=== PATIENT | female | born 1950 | race Caucasian/White ===

== ENCOUNTER 2018-02-14 13:45 | Observation (INO) | payer MEDICARE ==
[2018-02-14] MEDS ORDERED: NS 0.9% 1000 ML* 1,000 ML IV ONE (14:02)
--- NOTE | 2018-02-14 14:04 | ED ---
Altered Mental Status - HPI Summary HPI Summary: This patient is a 67 year old F BIBA to [facility] with a chief complaint of slurred speech since yesterday morning, worsening today. Patient reports nerve pain, dizziness, left hip pain, left hip weakness (it feels like I have no leg when I try to stand on it), and lump on right side of neck. Patient denies CP, SOB, TEJEDA, and blurry vision. Patient reports a stroke 1 year ago that went untreated. No PMHx of NE. She has not taken her BP medications recently. - History Of Current Complaint Stated Complaint: POSS STROKE Time Seen by Provider: 02/14/18 13:46 Hx Obtained From: Patient Onset/Duration: Still Present Timing: Constant, Lasting Days - Since yesterday morning Severity Currently: Mild Associated Signs And Symptoms: Positive: Dizziness, Weakness - Allergies/Home Medications Allergies/Adverse Reactions: Allergies Allergy/AdvReac Type Severity Reaction Status Date / Time No Known Allergies Allergy Verified 02/14/18 14:09 PMH/Surg Hx/FS Hx/Imm Hx Endocrine/Hematology History: Denies: Hx Diabetes EENT History: Denies: Hx Deafness - Family History Known Family History: Positive: Diabetes - Social History Alcohol Use: None Substance Use Type: Reports: None Smoking Status (MU): Heavy Every Day Tobacco Smoker Review of Systems Negative: Blurred Vision Positive: Other - Lump on right side of neck Negative: Chest Pain Negative: Shortness Of Breath Positive: Other - Left hip pain, left hip weaknessweakness (it feels like I have no leg when I try to stand on it) Neurological: Other - Dizziness Positive: Slurred Speech. Negative: Headache All Other Systems Reviewed And Are Negative: Yes Physical Exam - Summary Physical Exam Summary: GENERAL: Patient is a well-developed and nourished F who is lying comfortable in the stretcher. Patient is not in any acute respiratory distress. HEAD AND FACE: Normocephalic EYES: PERRLA, EOMI x 2. EARS: Hearing grossly intact. MOUTH: Oropharynx within normal limits. NECK: Supple, trachea is midline, no adenopathy, no JVD, no carotid bruit. CHEST: Symmetric, no tenderness at palpation LUNGS: Clear to auscultation bilaterally. No wheezing or crackles. CVS: Regular rate and rhythm, S1 and S2 present, no murmurs or gallops appreciated. ABDOMEN: Soft, non-tender. Bowel sounds are normal. No abdominal abnormal pulsations. EXTREMITIES: Full ROM in all major joints, no edema, no cyanosis or clubbing. NEURO: Alert and oriented x 3. No acute neurological deficits. Speech is normal and follows commands. NIH Stroke Scale = 1. SKIN: Dry and warm Triage Information Reviewed: Yes Vital Signs Reviewed: Yes Diagnostics - Laboratory Result Diagrams: 02/15/18 06:23 02/15/18 06:23 Lab Statement: Any lab studies that have been ordered have been reviewed, and results considered in the medical decision making process. - Radiology Chest X-Ray Radiology Interpretation Completed By: Radiologist - 14:57. NO ACTIVE CARDIOPULMONARY DISEASE IS NOTED. ED Physician has reviewed this imaging report. Brain MRI Radiology Interpretation Completed By: Radiologist - 17:01. Small area of restriction of diffusion involving the left brock at the level of the left cerebellar peduncle consistent with a small acute infarct in the brainstem. ED Physician has reviewed this imaging report. - CT Brain CT CT Interpretation Completed By: Radiologist - 14:51. 1. CHRONIC SMALL VESSEL ISCHEMIC CHANGES WITH AGE-INDETERMINATE LACUNAR INFARCT OF THE RIGHT BASAL GANGLIA. OTHERWISE, NO ACUTE INTRACRANIAL PATHOLOGY. 2. PRELIMINARY FINDINGS WERE DISCUSSED WITH DR. LEON IN THE EMERGENCY DEPARTMENT AT APPROXIMATELY 2:37 PM ON 2017 . ED Physician has reviewed this imaging report. - EKG 14:50 Cardiac Rate: Tachycardia - 109 BPM EKG Interpretation: left atrial enlargement, q waves seen in inferior and anterior septal leads National Institutes Of Health - NIH Scale Level of Consciousness: Alert/Keenly Responsive Ask Patient the Month and His/Her Age: Both Correct Ask Pt to Open/Close Eyes and Customer Support Associate/Release Non-Paretic Hand: Both Correctly Best Gaze (Only Horizontal Eye Movement): Normal Visual Field Testing: No Visual Loss Facial Paresis-Pt to Smile & Close Eyes or Grimace Symmetry: Normal/Symmetrical Motor Function - Right Arm: No Drift-Holds 10 Seconds Motor Function - Left Arm: No Drift-Holds 10 Seconds Motor Function - Right Leg: No Drift-Holds 10 Seconds Motor Function - Left Leg: No Drift-Holds 10 Seconds Limb Ataxia-Must be out of Proportion to Weakness Present: Absent Sensory (Use Pinprick to Test Arms/Legs/Trunk/Face): Normal Best Language (Describe Picture, Name Items): No Aphasia Dysarthria (Read Several Words): Slurs Some Words Extinction and Inattention: No Abnormality Total Score: 1 Altered Mental Statu Course/Dx - Course Assessment/Plan: This patient is a 67 year old F BIBA to [facility] with a chief complaint of slurred speech since yesterday morning, worsening today. Workup is remarkable for a white count of 14. She has a glucose at 280. CT scan of her head shows an age indeterminant right sided basal ganglia infarction. I discussed results with patient. The patient did not present within the window which is why I did not call a code arias. Case discussed with hospitalist, who will admit her with a full stroke workup. Patient agrees with this plan. - Diagnoses Provider Diagnoses: Stroke - Provider Notifications Discussed Care Of Patient With: Vishnu Long - Radiology Time Discussed With Above Provider: 14:37 Instructed by Provider To: Other - Discussed the results of the Brain CT Discharge - Sign-Out/Discharge Documenting (check all that apply): Patient Departure - Admit - Discharge Plan Condition: Stable Disposition: ADMITTED TO [facility] - Billing Disposition and Condition Condition: STABLE Disposition: Admitted to [facility] - Attestation Statements Document Initiated by Scribe: Yes Documenting Scribe: Antwon Bernardo Provider For Whom Scribe is Documenting (Include Credential): Damian Leon MD Scribe Attestation: Antwon Saldana, scribed for Damian Leon MD on 02/22/18 at 1441. Scribe Documentation Reviewed: Yes Provider Attestation: The documentation as recorded by the Antwon cheney accurately reflects the service I personally performed and the decisions made by me, Damian Leon MD
[2018-02-14] MEDS ORDERED: Labetalol IV* 5 MG/ML 20 ML VIAL IV PUSH ONE ×2 (14:11→18:29)
--- NOTE | 2018-02-14 14:54 | RAD ---
HISTORY: Neurological changes/code ralph COMPARISONS: None TECHNIQUE: Multiple contiguous axial CT scans were obtained of the head without intravenous contrast. FINDINGS: HEMORRHAGE/INFARCT: There is no hemorrhage or acute infarct. MASSES/SHIFT: There is no mass or shift. EXTRA-AXIAL SPACES: There are no extra-axial fluid collections. SULCI AND VENTRICLES: The sulci and ventricles are normal in size and position for the patient's stated age. CEREBRUM: There is hypoattenuation of the periventricular and subcortical white matter. There is an subacute to chronic age-indeterminate lacunar infarct of the right basal ganglia on axial image 11 measuring 0.4 cm in size. BRAINSTEM: There are no focal parenchymal abnormalities. CEREBELLUM: There are no focal parenchymal abnormalities. VESSELS: The vessels are grossly normal. PARANASAL SINUSES: The paranasal sinuses are clear. ORBITS: The orbits are unremarkable. BONES AND SOFT TISSUE: No bone or soft tissue abnormalities are noted. OTHER: None IMPRESSION: 1. CHRONIC SMALL VESSEL ISCHEMIC CHANGES WITH AGE-INDETERMINATE LACUNAR INFARCT OF THE RIGHT BASAL GANGLIA. OTHERWISE, NO ACUTE INTRACRANIAL PATHOLOGY. 2. PRELIMINARY FINDINGS WERE DISCUSSED WITH DR. ELY IN THE EMERGENCY DEPARTMENT AT APPROXIMATELY 2:37 PM ON 2017 .
--- NOTE | 2018-02-14 15:00 | RAD ---
Indication: Neurologic changes, coronal ralph. Single frontal view of the chest performed at 1440 hours was reviewed. No prior study is available. No mediastinal shift is noted. Heart is of normal size and configuration. Lung pickard appear clear. IMPRESSION: NO ACTIVE CARDIOPULMONARY DISEASE IS NOTED.
[2018-02-14 15:18] LABS: Hematocrit 43 % (35-47); Mean Corpuscular HGB Conc 35 g/dl (31-36); Mean Corpuscular Hemoglobin 31 pg (27-31); Mean Corpuscular Volume 90 fL (80-97); Mean Platelet Volume 9.9 um3 (7.4-10.4); Platelet Count 340 10^3/ul (150-450); Red Blood Count 4.78 10^6/ul (4.00-5.40); Red Cell Distribution Width 13 % (10.5-15)
[2018-02-14 15:19] LABS: Urine Appearance Clear; Urine Blood Negative (Negative); Urine Color Yellow; Urine Ketones Negative (Negative); Urine Protein Negative (Negative); Urine Specific Gravity 1.009 (1.010-1.030); Urine Urobilinogen Negative (Negative)
[2018-02-14 15:43] LABS: INR 0.97 (0.77-1.02)
[2018-02-14 15:44] LABS: EGFR Non-African American 125.6 (>60)
[2018-02-14 16:46] LABS: ABS Basophils 0.1 10^3/ul (0-0.2); ABS Eosinophils 0.1 10^3/ul (0-0.6); ABS Lymphocytes 5.1 10^3/ul (1.0-4.8); ABS Monocytes 1.2 10^3/ul (0-0.8); ABS Neutrophils 7.4 10^3/ul (1.5-7.7); ABS Nucleated RBC 0 10^3/ul; Lymphocyte % 36.7 % (25-47); Nucleated Red Blood Cells % 0.2
[2018-02-14] MEDS ORDERED: amLODIPine TAB* 5 MG PO ONE ×2 (16:52→21:00)
[2018-02-14] MEDS ORDERED: Clopidogrel TAB* 75 MG PO ONE (16:54)
[2018-02-14] MEDS ORDERED: Iohexol 350* (CONTRAST) 500 ML MDV IV ONE (16:57)
--- NOTE | 2018-02-14 17:04 | RAD ---
Indication: Transient ischemic attack, stroke. Sagittal and axial T1, axial T2, FLAIR, diffusion and susceptibility weighted images of the brain were obtained. Ventricular structures are midline. No midline shift is noted. The extra-axial spaces are unremarkable. The FLAIR images demonstrates multiple areas of signal abnormality in the FLAIR images in the subcortical white matter in the frontal lobes, periventricular white matter, right. Basal ganglia. These likely represents chronic ischemic White matter change. Additionally there is a small focus of restriction of diffusion involving the left brainstem at the level of the cervical peduncle consistent with a small brainstem infarct. No other areas of restriction of diffusion is noted. Susceptibility weighted images demonstrate no evidence of susceptibility artifact. Mild mucosal thickening of the right maxillary sinus is noted. IMPRESSION: Small area of restriction of diffusion involving the left brock at the level of the left cerebellar peduncle consistent with a small acute infarct in the brainstem.
[2018-02-14] MEDS ORDERED: Potassium Chlor TAB* 20 MEQ TAB.ER PO ONE (17:14)
[2018-02-14] MEDS ORDERED: Acetaminophen TAB* 325 MG PO PRN (17:26)
[2018-02-14] MEDS ORDERED: Dextrose 50% Syringe 50 ML* 25 GM/50 ML SYRINGE IV PUSH PRN (17:27)
--- NOTE | 2018-02-14 18:40 | RAD ---
EXAM: US Duplex Bilateral Extracranial Arteries CLINICAL HISTORY: 67 years old, female; Signs and symptoms; Speech disturbance; Slurred speech; Additional info: CVA TECHNIQUE: Real-time duplex ultrasound scan of the extracranial arteries integrating B-mode two-dimensional vascular structure, Doppler spectral analysis and color flow Doppler imaging. COMPARISON: No relevant prior studies available. FINDINGS: Right common carotid artery: Uncalcified plaque. No occlusion or significant stenosis on color flow and spectral Doppler imaging. Right internal carotid artery: No occlusion or significant stenosis on color flow and spectral Doppler imaging. Right external carotid artery: Unremarkable. No occlusion or significant stenosis on color flow and spectral Doppler imaging. Right vertebral artery: Unremarkable. Antegrade flow. Right ICA/CCA ratio: 0.86. Within normal limits. Left common carotid artery: Uncalcified plaque. No occlusion or significant stenosis on color flow and spectral Doppler imaging. Left internal carotid artery: No occlusion or significant stenosis on color flow and spectral Doppler imaging. Left external carotid artery: Unremarkable. No occlusion or significant stenosis on color flow and spectral Doppler imaging. Left vertebral artery: Unremarkable. Antegrade flow. Left ICA/CCA ratio: 0.70. Within normal limits. Lymph nodes: Unremarkable. No lymphadenopathy. CAROTID STENOSIS REFERENCE USING SRU CRITERIA: Mild - <50% stenosis. ICA PSV is less than 125 cm/second and plaque or intimal thickening is visible. Moderate - 50-69% stenosis. ICA PSV is 125 to 230 cm/second and plaque is visible. Severe - 70-94% stenosis. ICA PSV is more than 230 cm/second and visible plaque with lumen narrowing is seen. Near occlusion - 95-99% stenosis. ICA PSV is variable and significant plaque with luminal narrowing is seen. Occluded - 100% stenosis. No flow identified. IMPRESSION: Mild less than 50% stenosis of bilateral internal carotid arteries.
--- NOTE | 2018-02-14 20:54 | HP ---
HISTORY AND PHYSICAL: DATE OF ADMISSION: 02/14/18 ATTENDING PHYSICIAN: Dr. Sloan * (report dictated by Lindsey Pantoja, VALENTIN). PRIMARY CARE PROVIDER: No PCP. CHIEF COMPLAINT: Slurred speech and left-sided weakness. HISTORY OF PRESENT ILLNESS: Ms. Springer is a 67-year-old female with a past medical history of long-term tobacco abuse and hypertension, who presents to the emergency department today with her for report of slurred speech and left- sided weakness starting 2 to 3 days ago. Per the , he had to convince his to come in as she did not want to come in for evaluation. She reports she stopped taking her lisinopril over a year ago due to it causing a cough and did not follow up with any healthcare provider since and currently reports she has no primary care doctor. She reports that approximately a year ago, she had similar symptoms where she had acute onset of slurred speech, left facial droop and left-sided weakness and chose to not have any medical evaluation. Today, her convinced her to come in for further evaluation. She reports 2 to 3 days ago, she felt that her gait was off and she was leaning forward with weakness more on the left upper and lower extremities as well as she had garbled and slurred speech with left-sided facial droop. She reports today she is better than yesterday with improved gait and feels that her left-sided weakness is mostly resolved; however, she continues to have slurred and garbled speech. She denies any difficulty drinking or eating. She denies headache, vision changes, any numbness or tingling. Otherwise, she denies any recent illnesses and reports she normally feels well at her baseline. PAST MEDICAL HISTORY: 1. Hypertension. 2. Tobacco abuse. CURRENT MEDICATIONS: None. ALLERGIES: No known allergies. FAMILY HISTORY: Unknown. SOCIAL HISTORY: The patient reports a 50-year smoking history, smoking half a pack to a pack a day. Denies alcohol use. Denies recreational drug use. The patient currently lives at home with her who is her healthcare proxy, David Springer, . REVIEW OF SYSTEMS: A 14-point review of systems was performed. All the pertinent positives and negatives are mentioned in the history of present illness. Otherwise, negative. PHYSICAL EXAMINATION GENERAL APPEARANCE: A 67-year-old obese female lying on the emergency department stretcher, alert and oriented x3, in no acute distress. Notable slurred speech. VITAL SIGNS: Temperature 99.3, heart rate 92, respirations 19, O2 sat 94% on room air, and blood pressure 180/92. HEENT: Head is normocephalic, atraumatic. Pupils are equal and reactive to light. Oropharynx is clear. Moist mucous membranes. NECK: Supple. LUNGS: Clear to auscultation bilaterally. Good aeration throughout. No accessory muscle use. CARDIAC: S1, S2. Regular rate and rhythm. No murmur, rub, or gallop appreciated. No lower extremity edema noted. ABDOMEN: Obese, soft, nontender. Normal bowel sounds throughout. EXTREMITIES: No clubbing, cyanosis, or edema. NEUROLOGICAL: Alert and oriented x3, notable slurred speech, mild left facial droop noted. No pronator drift noted. Sensation to lower extremities intact to light touch. [id number] test is intact bilaterally. She appears to be slightly slower on the left than the right. Extraocular movements intact. Nystagmus noted with right gaze. Tongue is midline. Strength is 5/5 throughout. LABORATORY DATA AND DIAGNOSTIC STUDIES: Sodium 138, potassium 3.3, chloride 109, carbon dioxide 23, anion gap 16, BUN 14, creatinine 0.40, glucose 280, hemoglobin A1c 11.7, lactic acid 1.4, calcium 8.3. Total bilirubin 0.30, AST 12 , ALT 10, alkaline phosphatase 121. Troponin 0.01. Total protein 5.8, albumin 3.4. Triglycerides 185, cholesterol 206, LDL 132, HDL 37. INR is 0.97. WBC is 14.0, RBC 4.78, Hgb 15.0, Hct 43, MCV 90, MCH 31, MCHC 35, RDW 13, platelet count 340,000. Urinalysis: 2+ glucose, urine specific gravity 1.009, otherwise unremarkable. Brain CT, impression: "Chronic small vessel ischemic changes with age indeterminate lacunar infarct of the right basal ganglia. Otherwise, no acute intracranial pathology." Chest x-ray, impression: "No acute cardiopulmonary disease is noted." ASSESSMENT AND PLAN: Ms. Springer is a 67-year-old female with a past medical history of long-term tobacco abuse, uncontrolled hypertension who presents to the emergency department today with report of 2 to 3 days of slurred speech, unsteady gait and left-sided weakness, found to have an age indeterminate stroke on CT scan. As well, it appears per the patient's story that she had a stroke last year with similar symptoms in which she was never evaluated for. 1. Cerebrovascular accident. The patient will be admitted to the hospitalist service to telemetry. She will undergo an MRI of the brain as well as a CTA of the head and neck. She did take high-dose aspirin today due to her left-sided sciatica pain. I spoke with Dr. Cooper, who recommended starting the patient on Plavix and baby aspirin. We will give the patient the first dose of Plavix this evening. Obtain a transthoracic echocardiogram with bubble study, monitor on telemetry. PT/OT. Swallow eval. Fasting lipid profile in the morning. Neuro checks. Neurology to see tomorrow. 2. Uncontrolled hypertension. The patient presents with a blood pressure of over 200 in the emergency department. She was given labetalol, which has brought her pressure down to systolically 170s to 180s. We will give the patient 1 dose of Norvasc 5 mg x1 now and start her on Norvasc 5 mg p.o. daily. We will slowly want to bring her blood pressure down. 3. Type 2 diabetes. New diagnosis. We will start the patient on fingerstick blood glucose monitoring a.c. and h.s. with a lispro sliding scale. As well, we will refer to oil gas and pipe tester, Dr. Harvinder Gallegos. 4. Tobacco abuse. Smoking cessation. Nicotine replacement p.r.n. 5. DVT prophylaxis. Heparin subcu. 6. Code status. Full code. TIME SPENT: Approximately 60 minutes were spent on this admission. LINDSEY PANTOJA, VALENTIN [id number]/[facility] #: [id number] DOMENIC
[2018-02-14] MEDS: Heparin VIAL(*) 5000 UNITS/ML VIAL (FIVE THOUSAND) SUBCUT SCH (21:33)
[2018-02-14] MEDS: Insulin LISPRO* 1 UNITS UNIT SUBCUT SCH (21:34)
[2018-02-15] MEDS ORDERED: traMADol TAB* 50 MG PO PRN (01:16)
[2018-02-15] MEDS: Heparin VIAL(*) 5000 UNITS/ML VIAL (FIVE THOUSAND) SUBCUT SCH ×2 (05:27→14:52)
[2018-02-15 06:52] LABS: Hematocrit 45 % (35-47); Hemoglobin 15.3 g/dl (12.0-16.0); Mean Corpuscular HGB Conc 34 g/dl (31-36); Mean Corpuscular Hemoglobin 30 pg (27-31); Mean Corpuscular Volume 89 fL (80-97); Platelet Count 347 10^3/ul (150-450); Red Blood Count 5.03 10^6/ul (4.00-5.40); Red Cell Distribution Width 13 % (10.5-15); White Blood Count 12.3 10^3/ul (3.5-10.8)
[2018-02-15 06:53] LABS: ABS Basophils 0.1 10^3/ul (0-0.2); ABS Eosinophils 0.1 10^3/ul (0-0.6); ABS Lymphocytes 5.6 10^3/ul (1.0-4.8); ABS Monocytes 0.8 10^3/ul (0-0.8); ABS Neutrophils 5.6 10^3/ul (1.5-7.7); ABS Nucleated RBC 0 10^3/ul; Eosinophil % 0.7 % (0-6); Lymphocyte % 46.1 % (25-47); Nucleated Red Blood Cells % 0.1
[2018-02-15 07:06] LABS: EGFR Non-African American 191.5 (>60)
[2018-02-15] MEDS: Insulin LISPRO* 1 UNITS UNIT SUBCUT SCH ×2 (08:48→12:07)
[2018-02-15] MEDS ORDERED: Clopidogrel TAB* 75 MG PO SCH (09:00)
[2018-02-15] MEDS ORDERED: Aspirin 81 mg CHEW TAB* 81 MG TAB.CHEW PO SCH (09:00)
[2018-02-15] MEDS ORDERED: amLODIPine TAB* 5 MG PO SCH (09:00)
--- NOTE | 2018-02-15 11:18 | ECHO ---
Patient: KAMRYN SIBLEY Rec#: [id number] : 1950 Date: 02/15/2018 Age: 67y Height: 157 cm / 61.8 in Weight: 77.11 kg / 170.0 lbs Sex: F BSA: 1.78 Room#: 440 Admit Date#: 02/14/2018 Type: Inpatient Referring: Irlanda Tomlinson Reading: Maria De Jesus Sears MD Animal Husband[employer] Teacher: Yamel Whitlock RD Transthoracic Echocardiogram Indication: CVA BP: 159/58 HR: 96 Rhythm: NSR with PVCs Findings History: CVA, heavy smoker, HTN. Technical Comments: The study quality is fair. Completed at 1045. Left Ventricle: The left ventricular chamber size is normal. Mild concentric left ventricular hypertrophy is observed. There is normal left ventricular systolic function. The estimated ejection fraction is 55-60%. Abnormal left ventricular diastolic function is observed. Abnormal left ventricular diastolic filling is observed, consistent with impaired relaxation. Left Atrium: The left atrium is mildly dilated. Right Ventricle: Moderator Band present. The right ventricle is slightly dilated. The right ventricular global systolic function is normal. Right Atrium: The right atrium is mildly dilated. A prominent chiari network is noted in the right atrium. Interatrial septum appears intact without evidence of shunting. The bubble study is negative.Questionable single bubble seen on 1 of 2 studies. A patent foramen ovale is not demonstrated with color Doppler and agitated contrast. Aortic Valve: The aortic valve structure is not well visualized. The aortic valve is trileaflet. Mild aortic leaflet calcification is visualized. Systolic excursion of the non coronary cusp is reduced. There is a trace of aortic regurgitation. There is mild aortic stenosis. The mean gradient of the aortic valve is 9 mmHg. The peak instantaneous gradient of the aortic valve is 20 mmHg. The aortic valve area, by peak velocities, is calculated at 1.7 cm2. The aortic valve area, by VTI's, is calculated at 1.5 cm2. Mitral Valve: There is mitral annular calcification. The mitral valve leaflets are mildly thickened. There is a trace of mitral regurgitation. There is no evidence of mitral stenosis. Tricuspid Valve: The tricuspid valve leaflets are normal. There is trace tricuspid regurgitation. Unable to estimate the right ventricular systolic pressure. There is no tricuspid stenosis. Pulmonic Valve: The pulmonic valve appears normal. There is a trace pulmonic regurgitation. There is no pulmonic stenosis. Pericardium: There is no significant pericardial effusion. Aorta: There is no dilatation of the ascending aorta. There is no dilatation of the aortic arch. The aortic root is normal in size. Pulmonary Artery: The main pulmonary artery is not well visualized. Venous: The inferior vena cava appears normal in size. There is a greater than 50% respiratory change in the inferior vena cava dimension. Contrast: Normal saline was used as contrast for the bubble study. Images 23 and 24. Intravenous contrast was used to help determine presence of intracardiac shunting. Conclusions Mild concentric left ventricular hypertrophy is observed. Turbulance noted in LVOT. There is normal left ventricular systolic function. The estimated ejection fraction is 55-60%. Abnormal left ventricular diastolic filling is observed, consistent with impaired relaxation. The right ventricle is slightly dilated. The right ventricular global systolic function is normal. The bubble study is negative (questionable single bubble seen on 1 of 2 studies). A prominent chiari network is noted in the right atrium. Mild aortic leaflet calcification and sclerosis is visualized. Systolic excursion of the non coronary cusp is reduced. There is mild aortic stenosis. VICENTA is 1.7 cm2 (peak velocity) and 1.5 cm2 (VTI). There is a trace of mitral regurgitation. There is trace tricuspid regurgitation. No prior echo to compare. Measurements Name Value Normal Range RVIDd (AP) 2D 3.2 cm (0.9 - 2.6) RVDdMajor (2D) 3.8 cm (2.2 - 4.4) RAd ISD 4CH 5 cm (3.4 - 4.9) RA (A4C)W 4 cm (2.9 - 4.6) IVSd (2D) 1.1 cm (0.6 - 1) LVPWd (2D) 1.1 cm (0.6 - 1) LVIDd (2D) 3.6 cm (3.6 - 5.4) LVIDs (2D) 2.5 cm - LV FS (2D) 30 % (25 - 45) Aortic Annulus 2.2 cm (1.4 - 2.6) Ao root diameter (2D) 2.7 cm (2.1 - 3.5) Ascending Ao 3 cm (2.1 - 3.4) Aortic arch 2.8 cm (1.8 - 3.4) LA dimension (AP) 2D 4.1 cm (2.3 - 3.8) LAd ISD 4CH 5.2 cm (2.9 - 5.3) LA ISD 4CH W 4.2 cm (2.5 - 4.5) Name Value Normal Range LA ESV BP (A/L) index 25 ml/m2 - Name Value Normal Range MV E-wave Vmax 0.8 m/sec - MV deceleration time 137 msec - MV A-wave Vmax 1.5 m/sec - MV E:A ratio 0.6 ratio - LV septal e' Vmax 0.05 m/sec - LV lateral e' Vmax 0.06 m/sec - LV E:e' septal ratio 16 ratio - LV E:e' lateral ratio 13.33 ratio - Name Value Normal Range AV Vmax 2.2 m/sec - AV VTI 39.6 cm - AV peak gradient 20 mmHg - AV mean gradient 9 mmHg - LVOT diameter 2 cm - LVOT Vmax 1.2 m/sec - LVOT VTI 19.4 cm - LVOT peak gradient 6 mmHg - LVOT mean gradient 3 mmHg - DOI (VTI) 0.49 ratio - VICENTA (continuity Vmax) 1.7 cm2 - VICENTA (continuity VTI) 1.5 cm2 - DOMINIQUE Vmax 0.8 m/sec - Name Value Normal Range IVC diameter 1.7 cm - Name Value Normal Range PV Vmax 1.3 m/sec - PV peak gradient 7 mmHg -
[2018-02-15] MEDS ORDERED: Lisinopril TAB* 5 MG PO ONE (11:38)
[2018-02-15] MEDS ORDERED: Labetalol IV* 5 MG/ML 20 ML VIAL IV PUSH ONE (11:39)
--- NOTE | 2018-02-15 12:41 | CONSULT ---
Consult Consult: [facility] Inpatient Consult Note Date of Consult: 02/15/18 Reason for Consult: newly-recognized diabetes Reason for Admission: acute stroke with LEFT sided weakness SUBJECTIVE: History of Present Illness: 67 yo F with long-standing hypertension, admitted 04/23 with LEFT sided weakness, facial droop and word finding difficulty. Patient was reluctant to seek medical attention for these symptoms, but was encouraged by her to come in via EMS. Workup so far has found LEFT brainstem infarct on MRI, <50% carotid stenosis on vascular U/S. She moved to [place] from [place] in ~2015 and has not seen a doctor since then. Her hypertension was previously-treated with lisinopril. On arrival to ED, patient had random BG>200 and A1c 11.7% confirming the diagnosis of diabetes. She has been told that her BG was in the pre-diabetes range several years ago. She has had polyuria and nocturia for several months, without shannan polys Past Medical History: - hypertension - rheumatic heart disease - pre-diabetes Medications Prior to Admission: none Inpatient Medications: Acetaminophen (Tylenol Tab*) 650 mg PO Q6H PRN PRN Reason: FEVER/PAIN Last Admin: 02/14/18 21:32 Dose: 650 mg Amlodipine Besylate (Norvasc Tab*) 5 mg PO DAILY [facility] Last Admin: 02/15/18 08:02 Dose: 5 mg Aspirin (Aspirin 81 Mg Chew Tab*) 81 mg PO DAILY [facility] Last Admin: 02/15/18 08:02 Dose: 81 mg Atorvastatin Calcium (Lipitor*) 80 mg PO 2100 SAEID Clopidogrel Bisulfate (Plavix Tab*) 75 mg PO DAILY [facility] Last Admin: 02/15/18 08:02 Dose: 75 mg Dextrose (D50w Syringe 50 Ml*) 12.5 gm IV PUSH .FOR FS < 60 - SS PRN PRN Reason: FS < 60 Heparin Sodium (Porcine) (Heparin Vial(*)) 5,000 units SUBCUT Q8HR [facility] Last Admin: 02/15/18 05:27 Dose: 5,000 units Insulin Human Lispro (Humalog*) 0 units SUBCUT ACHS [facility]; Protocol Last Admin: 02/15/18 12:07 Dose: 3 units Tramadol HCl (Ultram*) 50 mg PO Q8H PRN PRN Reason: PAIN Last Admin: 09/12/18 01:50 Dose: 50 mg Allergies/Intolerances: lisinopril causes cough; refuses high-dose statin therapy due to fear of muscle side effects Social History: Active smoker. Lives with , adult son. Denies drug or alcohol use. Family History: Diabetes in mother. Obesity in sister. No cancer. Review of Systems: Mild weakness in LLE/LUE. Decreased vision on LEFT. 12 system review is otherwise negative. OBJECTIVE: Vital Signs: Vital Signs - On Arrival Temp Pulse Resp BP Pulse Ox 99.3 F 120 18 217/101 96 02/14/18 13:52 02/14/18 13:52 02/14/18 13:52 02/14/18 13:52 02/14/18 13:52 Vital Signs - Most Recent Temp Pulse Resp BP Pulse Ox 98.0 F 96 20 162/80 96 02/15/18 11:50 02/15/18 11:50 02/15/18 11:50 02/15/18 12:58 02/15/18 11:50 General: alert, pleasant, oriented, no distress, supine ENT: neck supple, no thyromegaly, no bruit is heard Chest: CTAB, no wheezing or crackles CV: RRR, 2/6 HSM present Abdomen: soft, non-tender Extremities: no edema, distal pulses intact Skin: warm, dry, no rash Neuro: subtle weakness on L, grossly intact sensory exam in extremities Psych: restricted affect, pleasant Labs: - POC glucose reviewed - A1c 11.7% 02/15/18 06:23 02/15/18 06:23 INR (Anticoag Therapy) 0.97 (0.77-1.02) 02/14/18 15:08 APTT 27.7 seconds (26.0-36.3) 02/14/18 15:08 Total Bilirubin 0.30 mg/dL (0.2-1.0) 02/14/18 15:08 AST 12 U/L (13-39) L 02/14/18 15:08 ALT 10 U/L (7-52) 02/14/18 15:08 Alkaline Phosphatase 121 U/L (34-104) H 02/14/18 15:08 Total Protein 5.8 g/dL (6.4-8.9) L 02/14/18 15:08 Albumin 3.4 g/dL (3.2-5.2) 02/14/18 15:08 Globulin 2.4 g/dL (2-4) 02/14/18 15:08 Albumin/Globulin Ratio 1.4 (1-3) 02/14/18 15:08 Triglycerides 186 mg/dL 02/15/18 06:23 Cholesterol 219 mg/dL 02/15/18 06:23 LDL Cholesterol 147 mg/dL 02/15/18 06:23 HDL Cholesterol 35.0 mg/dL 02/15/18 06:23 ASSESSMENT: 67 yo F with hypertension, now presenting with acute stroke and diabetes with hyperglycemia. Numerous risk factors for recurrent stroke -- HTN, DL, DM, tobacco, valve disease. Embolic disease seems likely in this case. Hyperglycemia should be addressed with insulin during this admission to determine whether she will require insulin at home or could be managed at home with orals + diet. At the present time, her estimated insulin requirement is at least 20 units/day, which may be given as basal/bolus or a 4-shot regular/NPH regimen. Due to cost and ease of use, I recommend regular/NPH as below, with titration of dose until BG are consistently 100-160 as inpatient. Dyslipidemia will be addressed with high-dose, high-potency statin (atorvastatin 80mg). Low- dose (5mg), high-potency statin should be recommended if patient refuses this. Hypertension should be addressed with ARB, as patient reports intolerance to lisinopril in the past. PLAN: - start regular insulin 5 units with meals - titrate prandial dose by 1 unit/day until pre-meal BG<160 - plan to consolidate insulin to 70/30 BID at discharge - use regular insulin sliding scale 1 unit/50 for BG>150 - start NPH insulin 5 units at bedtime - titrate overnight dose by 1 unit/day until fasting BG<140 - plan to consolidate insulin to 70/30 BID at discharge - hypertension management per neurology, consider ARB - lipid management per neurology, consider atorvastatin 5mg until follow-up in clinic - insulin teaching from floor nurse - follow-up in endocrine clinic in 2 weeks Thank you for consult.
--- NOTE | 2018-02-15 12:55 | CONS ---
CONSULTATION REPORT: DATE OF CONSULT: 02/15/18 ATTENDING PHYSICIAN: Amy Sloan MD PRIMARY CARE PROVIDER: None. CURRENT LOCATION: [facility], Bed 1. REASON FOR CONSULT: Left-sided weakness and slurred speech. HISTORY OF PRESENT ILLNESS: Ms. Springer is a very nice 67-year-old female who has a history of hypertension, diabetes, with a hemoglobin A1c of 11.7, although she was unaware of this, also chronic tobacco use for years. She states that about a year ago she had similar symptoms of slurred speech and left -sided weakness, but she was never evaluated. She presented yesterday with a 2 to 3 day history of slurred speech, left facial droop, and left-sided weakness. She denies any problem swallowing. She denies any numbness or tingling on the left side. The nurse notes that she had a bedside swallow that was normal. The patient denies any dysphagia. She denies any vision changes, headaches. She states that the symptoms came on suddenly, but it took her several days to become concerned enough to come in, her prompted her to come into the ER yesterday. She had a CT scan done in the ER, which showed a possible infarct to the right basal ganglia, indeterminate age, but otherwise negative. Additional studies done yesterday included a carotid ultrasound, showed bilateral vertebral artery unremarkable, less than 50% stenosis of bilateral internal carotid arteries noted. An MRI of the brain was done last night, films reviewed. The impression is small area restriction and diffusion involving the left brock at the level of the left cerebellar peduncle consistent with small acute infarct to the brain stem. I agree with the findings. She states that her symptoms are about the same, although over the last few days she feels like she has been getting slightly better. She states that she has been ambulating to the bathroom with a walker and assistance. She denies any new focal numbness, tingling, or weakness. She was previously on lisinopril, but stopped that well over a year ago due to cough and she was never on any other blood pressure medication. She does have a history of left-sided sciatica. On the day of admission, she took several aspirin for her pain. In the ER, Dr. Cooper was consulted and advised to put her on Plavix and aspirin, Plavix for 30 days. She has had no further issues since her admission to the hospital. PAST MEDICAL HISTORY: Includes hypertension; tobacco use; and diabetes, unaware. MEDICATIONS: Her medications on admission: She took some aspirin, but otherwise was on no medications. Current medications include: 1. Tylenol p.r.n. 2. Norvasc 5 mg p.o. daily. 3. Aspirin 81 mg daily. 4. Plavix 75 mg daily. 5. Heparin, DVT prophylaxis. 6. Insulin sliding scale. 7. Tramadol 50 mg p.o. q.8 hours p.r.n. ALLERGIES: She has no known drug allergies. FAMILY HISTORY: She is unaware of any significant medical issues. SOCIAL HISTORY: [id number] smoking. Denies any alcohol or illicit substance use. Lives at home with her , Shahid Springer, area code . REVIEW OF SYSTEMS: Review of systems in 14-organ systems was done. As noted above in the HPI, pertinent positives and negatives, otherwise negative. PHYSICAL EXAM: Vital Signs: Temp of 98.7, pulse of 95, respiratory rate of 20 , pulse ox of 95%, blood pressure 169/72 to 151/60 to 159/58. In general, she is a well-nourished, well-developed female, lying in her hospital bed, sleeping , but awakens easily. She is pleasant, well dressed, well groomed. HEENT: She is normocephalic, atraumatic. Sclerae are anicteric. Mucous membranes are slightly dry. Oropharynx is clear. Nares are patent. Neck is supple. No thyromegaly. No carotid bruits. No meningismus. Chest: Clear to auscultation bilaterally. Cardiovascular: Regular rate and rhythm with a 2/6 systolic ejection murmur. Abdomen is obese, nontender, soft, with normal bowel sounds. Extremities: No clubbing, cyanosis, or edema. Neurologic Exam: She is awake, alert, and oriented x3. Her speech is fluent. There is mild-to- moderate dysarthria. Repetition is intact. Recall of recent and remote events is intact. Vocabulary is intact. Her mood is dysthymic. Affect, mood congruent. Cranial Nerves II through XII: Pupils are equally round and reactive to light. Extraocular muscles are intact. Her facial sensation is intact. Face is asymmetric with a droop in the left lower face and weakness of the smile. Flattening of the nasolabial fold on the left. Hearing is intact bilaterally to finger rub. Palate raises symmetrically. Tongue is midline. Sternocleidomastoid and trapezius are both 5/5. Motor Exam: She spontaneously moves all extremities antigravity. She has good resistance, 5/5 throughout. Tone and bulk are both normal. She does have some drift in the left upper and lower extremities. She is following all commands. Sensation is intact to light touch and pinprick throughout, no extinguishing in the upper or lower extremities. [id number], rapid alternating movements are intact. No tremors noted. No dysdiadochokinesia or dysmetria. Jjjd-yw-cmwk is intact as well. Her DTRs are trace in the upper extremity, trace to patella, absent at the ankles, upgoing Babinski bilaterally. Gait was not tested, although she has been ambulating with a walker. She has weakness of the left leg. DIAGNOSTIC STUDIES/LAB DATA: As noted above. In addition, she perfused her CT angiogram. Her echocardiogram is pending. Lab work includes a white count of 12.3, down from 14 yesterday; absolute lymphocytes of 5.6, otherwise her CBC with diff is normal. INR is 0.97, PTT of 27.7. Potassium on admission 3.3, today at 3.6; creatinine of 0.49, today at 0.34; glucose of 280, this morning 202; hemoglobin A1c of 11.7; calcium of 8.3. Magnesium 1.8. Alk phos of 121, triglyceride 186, cholesterol 219, LDL of 147, HDL of 35.0. Urine showed 2+ glucose, 1.009 specific gravity. ASSESSMENT AND PLAN: Ms. Springer is a 67-year-old female with risk factors of prior stroke by CT and by report. She did not seek help at that time. She has a history of hypertension, which has apparently been poorly controlled. She stopped her lisinopril over a year ago due to cough. She has a history of tobacco use, heavy, [id number] plus, a history of diabetes, which she was unaware, but her hemoglobin A1c over 11, presented to the hospital with a 2 to 3 day history of slurred speech, left-sided weakness, consistent with her MRI findings of a left pontine stroke. So far, her workup has otherwise been negative. Carotid ultrasound showed no obvious posterior circulation stenosis. Echocardiogram is pending. At this point, she is now 2 to 3 days out. I would strive for good blood pressure control. I would continue her aspirin and Plavix, both for 30 days, then I would stop her aspirin and keep her on Plavix. Speech Therapy is to evaluate her. She passed her bedside swallow, it is likely okay for her to eat, but I will await her swallowing study. PT and OT are going to evaluate her as well and she may be a good candidate for inpatient rehab depending on how she does. Her blood sugars need to be very tightly controlled, this is something that Dr. Sloan will work on during her admission. She would likely need to be on outpatient medication. We had a long discussion about smoking cessation, obviously this is a major risk factor for her. I told her that she must stop smoking as her risk of stroke and heart attack are much higher. She is on DVT prophylaxis. I will check a few additional labs to rule out reversible causes of stroke. She can follow up with me after her discharge as well. I will continue to follow her during her hospitalization. Thank you for the opportunity to participate in her care. [id number]/[facility] #: [id number] DOMENIC
--- NOTE | 2018-02-15 14:33 | PN ---
Subjective Date of Service: 02/15/18 Interval History: Ms. Springer reports feeling better today. She feels that her left sided weakness is much improved, as is her speech. She reports an intention to stop smoking and to become a vegan. She is very eager for discharge to home today. Objective Active Medications: Acetaminophen (Tylenol Tab*) 650 mg PO Q6H PRN Amlodipine Besylate (Norvasc Tab*) 5 mg PO DAILY SAEID Aspirin (Aspirin 81 Mg Chew Tab*) 81 mg PO DAILY SAEID Atorvastatin Calcium (Lipitor*) 80 mg PO 2100 SAEID Clopidogrel Bisulfate (Plavix Tab*) 75 mg PO DAILY SAEID Dextrose (D50w Syringe 50 Ml*) 12.5 gm IV PUSH .FOR FS < 60 - SS PRN Heparin Sodium (Porcine) (Heparin Vial(*)) 5,000 units SUBCUT Q8HR SAEID Insulin Human NPH (Insulin Nph(*)) 5 units SUBCUT BEDTIME SAEID Insulin Human Regular (Insulin Regular(*)) 5 units SUBCUT AC SAEID Tramadol HCl (Ultram*) 50 mg PO Q8H PRN Vital Signs: Temp Pulse Resp BP Pulse Ox 98.0 F 96 20 162/80 96 02/15/18 11:50 02/15/18 11:50 02/15/18 11:50 02/15/18 12:58 02/15/18 11:50 Oxygen Devices in Use Now: None Appearance: Female lying in bed with at bedside in NAD Eyes: No Scleral Icterus Ears/Nose/Mouth/Throat: Mucous Membranes Moist Neck: Trachea Midline Respiratory: Symmetrical Chest Expansion and Respiratory Effort, Clear to Auscultation Cardiovascular: NL Sounds; No Murmurs; No JVD, No Edema Abdominal: NL Sounds; No Tenderness; No Distention Extremities: No Edema Skin: No Rash or Ulcers Neurological: Alert and Oriented x 3, - - +4 left sided upper and lower extremity, +5 on right, mild slurring of speech but has loose dentures as well Nutrition: Taking PO's Result Diagrams: 02/15/18 06:23 02/15/18 06:23 Assess/Plan/Problems-Billing Assessment: Ms. Springer is a 67 yo F with a PMH of tobacco use and hypertension who does not follow regularly with medical care who was admitted on 02/14/18 with slurred speech and left sided weakness. - Patient Problems (1) CVA (cerebral vascular accident) Comment: - Subacute infarct with symptoms x 2-3 days. - Appreciate neurology consult. - CT brain on arrival showed age-indeterminate lacunar infarct of the basal ganglia. MRI brain confirmed infarct at the left brock and the level of the left cerebellar peduncle. Carotid dopplers negative. - HgbA1c 11.7, appreciate consultation and recommendations from Dr. Gallegos as per below. - HTN uncontrolled. Will allow for permissive hypertension now but have started amlodipine and losartan (does not tolerate ACEI). - Smoking cessation counseling offered. - Echo without PFO or vegetation. EF intact, no significant wall motion or valvular abnormalities. - Continue aspirin and plavix. (2) Diabetes Comment: - Appreciate consultation from Dr. Gallegos, endocrinology. - Plan for 5units NPH at bedtime with 5 units regular insulin with meals. Metformin BID. - Patient to follow up with Dr. Gallegos. (3) Hypertension Comment: - SBP 160s. - Continue losartan and amlodpine, started this admission. (4) Tobacco abuse Comment: - Cessation counseling given. (5) DVT prophylaxis Comment: - Heparin SQ. (6) Full code status Status and Disposition: OBV. Discharge to home to follow up with [facility].
[2018-02-15 15:48] VITALS: BP 140/54
[2018-02-15] MEDS ORDERED: Insulin REGULAR(*) 1 UNITS UNIT SUBCUT SCH (16:30)
[2018-02-15] MEDS ORDERED: Insulin NPH(*) 1 UNITS UNIT SUBCUT ONE (16:37)
[2018-02-15] MEDS ORDERED: Atorvastatin* 80 MG TAB PO SCH (21:00)
[2018-02-15] MEDS ORDERED: Insulin NPH(*) 1 UNITS UNIT SUBCUT SCH ×2 (21:00)
[2018-02-15] MEDS ORDERED: Atorvastatin* 80 MG TAB PO ONE (21:00)
[2018-02-16] MEDS ORDERED: Losartan TAB* 25 MG PO SCH (09:00)
--- NOTE | 2018-02-16 15:59 | DS ---
CC: Providers at [facility] * HOSPITAL MEDICINE DISCHARGE SUMMARY: DATE OF ADMISSION: 02/14/18 DATE OF DISCHARGE: 02/15/18 ATTENDING PHYSICIAN: Dr. Jossy Merlos * (dictation provided by Kim Zamora NP ). PRIMARY DIAGNOSES: 1. Cerebrovascular accident to the left brock at the level of the left cerebellar peduncle with mild left-sided weakness and mild speech impairment. 2. Type 2 diabetes, new diagnosis. 3. Hypertension. 4. Tobacco abuse disorder. MEDICATIONS AT THE TIME OF DISCHARGE: 1. Metformin 500 mg p.o. b.i.d. 2. Amlodipine 5 mg p.o. daily. 3. Losartan 25 mg p.o. daily. 4. NPH insulin 5 units subcutaneously at bedtime and regular insulin 5 units with meals. 5. Clopidogrel 75 mg p.o. daily x30 days. 6. Atorvastatin 80 mg p.o. at bedtime. 7. Aspirin 81 mg p.o. daily. HOSPITAL COURSE: Ms. Springer is a 67-year-old female, who presented to the emergency room on 02/14/18 with concern for difficulty with her speech and left - sided weakness. Please see dictated H and P from Irlanda Tomlinson NP, for complete details. In brief, the patient states she had these symptoms for 2 to 3 days prior to coming in. Her ultimately convinced her to come to the hospital for evaluation. She had been on lisinopril in the past for elevated blood pressure, but stopped it due to it causing a cough. She does not regularly follow up with medical providers. In the emergency room, she is confirmed to have left-sided weakness and slurred speech. She went on for a CT of the brain, which showed the following: "Age indeterminate lacunar infarct of the right basal ganglia.: Ms. Springer was admitted to the hospital for subacute CVA. The remainder of her workup included a chest x-ray that showed no active cardiopulmonary disease noted. She had an EKG, which showed sinus tachycardia with a heart rate of about 109 with no evidence of acute ischemia. She had a transthoracic echocardiogram, which showed "mild concentric left ventricular hypertrophy, turbulence is noted in left ventricular outflow tract. There is normal left ventricular systolic function. The estimated ejection fraction is 55% to 60%. There is abnormal left ventricular diastolic filling observed. The bubble study is negative for PFO. A prominent Chiari network is noted in the right atrium. There is mild aortic stenosis." The patient had a brain MRI that showed the following "small area of restriction of diffusion involving the left brock at the level of the left cerebellar peduncle consistent with a small acute infarct in the brain stem." She had a carotid Doppler study that showed mild, less than 50% stenosis of bilateral internal carotid arteries. Ms. Springer was also seen in consultation by Dr. Roa from Neurology and I refer you to his note for complete details. In brief, he agreed with our workup and recommended that this patient go on aspirin and Plavix, but the Plavix should be discontinued after 30 days. He agreed that the patient's blood pressure should be tightly controlled as she was quite elevated on arrival. He agreed that her diabetes should be addressed as she had a new elevated hemoglobin A1c over 11. For the diagnosis of diabetes, she was seen in consultation by Dr. Harvinder Gallegos from Endocrinology and he recommended that the patient be started on 5 units of NPH insulin at night and 5 units of regular insulin with each meal, which has been accomplished here in the hospital. The patient can follow up with Dr. Gallegos outpatient for continued help with management of her diabetes. She will also be on metformin. The patient has also been started on atorvastatin while here in the hospital and her lipid profile was as follows: Triglycerides 186, cholesterol 219, LDL 147, HDL 35.0. Ms. Springer is doing well. She was seen by Physical Therapy and Occupational Therapy and deemed to have no acute inpatient need for rehabilitation. She continues to have a mild left-sided weakness, that is improving. She does have a bit of slurred speech, but a part of this is due to loose dentures. Our recommendations are that she can follow up with Speech Therapy dependent on her preferences. Ms. Springer is medically stable for discharge to home with a diagnosis of a subacute CVA. She will be newly started on aspirin and Plavix; again with Plavix to be continued for 30 days. She is on atorvastatin. She is on 2 new medications for her blood pressure, namely amlodipine and losartan. She is on regular and NPH insulin for her diabetes as well as metformin. The patient has poor insurance coverage and I have worked closely with her to send her medications both to [facility] and to [facility], so that she can try to find the lowest styles on those. As she has no primary care physician, I have given her information about the [facility] and have directly contacted the [facility] myself and asked that they follow up with her with a phone call tomorrow to verify that she was able to obtain her medications and to help her with medication procurement as well as for an appointment within 1 week. DISPOSITION: Home. DIET: Low fat, low salt, low carb. ACTIVITY: As tolerated. FOLLOWUP PLANS: Please follow up with [facility]. The patient will be called tomorrow for an appointment and to follow up on any medication issues. TIME SPENT: Approximately 90 minutes was spent on the discharge of this patient , more than half time spent with the patient and her at the bedside reviewing the events leading up to and during this hospitalization, performing the physical examination, and reviewing my plan of care. KIM ZAMORA NP [id number]/[facility] #: [id number] DOMENIC
== END 2018-02-15 17:50 | disposition home or self-care (01) ==
LOC: ED 13:45 → MEDTELE 16:01
PROVIDERS: ADMIT Internal Medicine; ATTEND Internal Medicine
DX: I63.9 Cerebral infarction, unspecified (principal); E11.9 Type 2 diabetes mellitus without complications; I10 Essential (primary) hypertension; F17.210 Nicotine dependence, cigarettes, uncomplicated; R00.0 Tachycardia, unspecified; Z79.82 Long term (current) use of aspirin; Z79.899 Other long term (current) drug therapy; Z79.84 Long term (current) use of oral hypoglycemic drugs; I51.7 Cardiomegaly; Z79.01 Long term (current) use of anticoagulants
CPT/HCPCS: 36415; 70450; 70551; 71045; 80048; 80053; 80061; 81003; 82607; 82746; 83036; 83090; 83605; 83735; 84439; 84443; 84484; 85025; 85060; 85610; 85730; 86850; 86900; 86901; 93005; 93306; 93880; 96361; 96372; 96374; 96376; 99284; 99406; A9270-GY; G0378; G8978-GP-CH; G8979-GP-CH; G8980-GP-CH; G8987-GO-CI; G8988-GO-CI; G8989-GO-CI; G8996-GN-CH; G8997-GN-CH; G8998-GN-CH; J1644

== ENCOUNTER 2018-04-02 12:02 | Emergency (ER) | payer SELFPAY ==
[2018-04-02] MEDS ORDERED: NS 0.9% 1000 ML* 1,000 ML IV ONE (13:04)
--- OUTSIDE RECORDS SUMMARY | 2018-04-02 13:13 | XMS REPORT ---
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 Huy Lambert MD Active artery occlusion Onset: 02/23/2018 Sciatica Huy Lambert MD Active Onset: 03/03/2018 Hyperlipidemia Huy Lambert MD Active Onset: 03/03/2018 Tobacco user Huy Lambert MD Active Social History Type Date Description Comments Marital Status Lives With Occupation retired 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 Cigarette Use Light tobacco smoker (10 or fewer cigarettes/day) ETOH Use Denies alcohol use Smoking Light tobacco smoker (10 or 5 daily, pt rolls her own fewer cigarettes/day) Recreational Drug Use Denies Drug Use Daily Caffeine Consumes on average 3 cups of regular coffee per day Exercise Type/Frequency Exercises regularly walking daily General Hx Text has a masters degree Allergies, Adverse Reactions, Alerts Date Description Reaction Status Severity Comments 02/17/2018 Atorvastatin Myalgias active Medications Medication Date Status Form Strength Qnty SIG Indications Ordering Provider Gabapentin 03/13/ Active Capsules 100mg 90cap 1 tab three M54.32 2017 s times a day MD Katja as needed for pain Lancets 03/03/ Active Misc 33G 100un for use E11.65 Huy Lambert, 2018 its with your MD glucometer Crestor 03/03/ Active Tablets 5mg 30tab take 1 tab E78.5 Huy Lambert, 2018 s daily MD Connell 02/23/ Active Tablets 6.25mg 60tab take 1 tab I10 Huy Lambert, 2018 s twice a day Losartan 02/22/ Active Tablets 50mg 30tab take 50mg [place] Potassium 2018 s by mouth MD Rosy daily Glipizide XL 02/22/ Active Tablets ER 5mg 30tab take 5mg E11.65 [place] 2018 24HR s daily in MD Rosy the morning Atorvastatin 02/22/ Active Tablets 10mg 30tab Not I63.139 [place] Calcium 2018 s taking--leila MD Rosy e 5mg (1/2 tablet) once daily Insulin 02/16/ Active Misc 31G X 100un use twice [place] Syringe-Needle 2018 06/09" 1 ML its daily with MD Rosy U-100 insulin Relion 2-In-1 02/16/ Active Misc 30G 100un use twice [place] Lancing Device 2018 its daily MD Rosy 30G Relion Prime 02/16/ Active Device 1unit test BG 2 [place] Blood Glucose 2018 s times daily MD Rosy Monitoring System Relion Prime 02/16/ Active Strips 100un test BG 2 [place] Blood Glucose 2018 its times daily MD Rosy Test Strips and keep a log Amlodipine / Active Tablets 5mg 30tab 1 by mouth [place] Besylate 0000 s every day Edd Gold Aspirin 81 Low / Active Chewtabs 81mg 1 by mouth Unknown Dose 0000 every day Metformin HCL / Active Tablets 500mg 60tab 1 by mouth Dixie 0000 s twice a day Edd Gold Plavix / Active Tablets 75mg 30tab 1 by mouth Dixie 0000 s every day prerna Gold M.D. end date 03/17/18. Tylenol Extra / Active Tablets 500mg 1 tab by Unknown Strength 0000 mouth 6 X daily as needed Ibuprofen 200 / Active Tablets 200mg 400-600mg Unknown 0000 every 6 hours as needed for pain. Losartan 02/22/ Hx Tablets 100mg 30tab take 100mg [place] Potassium 2017 - s by mouth MD Rosy daily 2018 Novolin 70/30 Hx Suspension (70-30)10 10ml 10 units E11.65 [place] Relion 2018 - 0Unit/ML with MD Rosy breakfast, 2017 5 units with lunch (pt not taking at this time) Atorvastatin 00/ Hx Tablets 80mg 1 by mouth Unknown Calcium 0000 - every day 2017 Clopidogrel / Hx Tablets 75mg 1 by mouth Unknown Bisulfate 0000 - every day(unable 2018 to afford) Losartan / Hx Tablets 25mg 1 by mouth Unknown Potassium 0000 - every day 2017 Aspirin / Hx Tablets DR 325mg pt taking Unknown 0000 - OTC ---take by mouth 2017 3x a day as needed Immunizations CPT Code Status Date Vaccine Lot # [id number] Given 03/13/2018 Pneumonia Vaccine [id number] Vital Signs Date Vital Result Comment 03/13/2018 Height 63.25 inches 5'3.25" Weight 164.00 lb Heart Rate 107 /min BP Systolic Sitting 168 mmHg BP Diastolic Sitting 92 mmHg Body Temperature 97.6 F O2 % BldC Oximetry 94 % BMI (Body Mass Index) 28.8 kg/m2 03/03/2018 Weight 168.00 lb Heart Rate 96 /min BP Systolic 156 mmHg Lue BP Diastolic 80 mmHg Lue BP Systolic Sitting 148 mmHg Rue BP Diastolic Sitting 74 mmHg Rue Respiratory Rate 18 /min Body Temperature 98.2 F Pain Level 3 sciatic L sided O2 % BldC Oximetry 97 % 02/23/2018 Height 62 inches 5'2" Weight 170.00 lb Heart Rate 115 /min BP Systolic 151 mmHg Lue BP Diastolic 69 mmHg Lue BP Systolic Sitting 138 mmHg Rue BP Diastolic Sitting 65 mmHg Rue Respiratory Rate 18 /min Body Temperature 98.5 F Pain Level 7 Lhip O2 % BldC Oximetry 97 % BMI (Body Mass Index) 31.1 kg/m2 02/22/2018 Height 62 inches 5'2" Weight 168.00 lb Heart Rate 121 /min BP Systolic Sitting 198 mmHg BP Diastolic Sitting 85 mmHg BMI (Body Mass Index) 30.7 kg/m2 Results Test Date Test Result H/L Range Note Laboratory test finding 02/28/2018 TSH (Thyroid Stim 0.85 mcIU/mL 0.34- 5.60 Horm) Free T4 (Free Thyroxine) 1.29 ng/dL High 0.61-1.12 Basic Metabolic Panel 02/28/2018 Sodium 140 mmol/L 135-145 Potassium 4.2 mmol/L 3.5-5.0 Chloride 106 mmol/L 101-111 Co2 Carbon Dioxide 25 mmol/L 22-32 Anion Gap 9 mmol/L 2-11 Glucose 132 mg/dL High 70-100 Blood Urea Nitrogen 17 mg/dL 6-24 Creatinine 0.42 mg/dL Low 0.51-0.95 BUN/Creatinine Ratio 40.5 High 8-20 Calcium 9.9 mg/dL 8.6-10.3 Egfr Non- 150.0 >60 Egfr 181.6 >60 1 Laboratory test finding 02/22/2018 Glucose Random 264 1 Because ethnic data is not always readily available, this report includes an eGFR for both -Americans and non- Americans. The National Kidney Disease Education Program (NKDEP) does not endorse the use of the MDRD equation for patients that are not between the ages of 18 and 70, are , have extremes of body size, muscle mass, or nutritional status, or are non- or non-. According to the National Kidney Foundation, irrespective of diagnosis, the stage of the disease is based on the level of kidney function: Stage Description GFR(mL/min/1.73 m(2)) 1 Kidney damage with normal or decreased GFR 90 2 Kidney damage with mild decrease in GFR 60-89 3 Moderate decrease in GFR 30-59 4 Severe decrease in GFR 15-29 5 Kidney failure <15 (or dialysis) Procedures Date CPT Code Description Status 02/15/2018 88308 ECHO Transthorasic Realtime 2D W Doppler & Color Flow Completed Hosp Encounters Type Date Location Provider CPT E/M Dx Office Visit 02/22/2018 [facility] [place] [id number] E11.65 1:00p [facility] I10 E05.80 I63.139 Office Visit 02/15/2018 12:18p [facility] [place] [address] E11.9 [facility] I63.9 I10 Office Visit 02/15/2018 11:35a [facility] Kim Zamora, N.P. 27073 I63.9 Hospitalists E11.9 F17.200 I10 Office Visit 02/14/2018 11:35a [facility] Irlanda Tomlinson, VALENTIN [address]1279 I63.9 Hospitalists M54.32 I10 E11.9 R47.81 Plan of Care Future Appointment(s):04/13/2018 9:40 am - Shagufta Hightower MD at [facility] Internal Medicine - [address]05/24/2018 11:00 am - Harvinder Gallegos MD at [facility]03/13/2018 - Sahgufta Hightower MDE11.65 Type 2 diabetes mellitus with hyperglycemiaNew Xrays:VL Ank/Brachial IndicesComments:Follow up in 1 monthcontinue current medications and a low carb dietwe will discuss any change in medication at the next visit You have a referral to a Study Specialist to evaluate your feet and also for a circulation test at the vascular lab. We will discuss results at the next visitReferral:Julio Gee DPM, Surgery, Foot/ [id number] Essential (primary) hypertensionComments:Follow up in 1 month your repeat Blood Pressure was 140/72please continue your medications, watch the salt in your diet, and bring in your home monitor to your next wifrlD95.32 Sciatica, left sideNew Medication:Gabapentin 100 mgComments:You can take up to three tablets at the same time, at bedtime, for pain.This pain may improve over time. If it doesn't, we will consider physical therapy and further eaytlclnzvU37.210 Nicotine dependence, cigarettes, uncomplicatedComments:I urge you to continue your efforts to quit smoking.E78.5 Hyperlipidemia, unspecifiedComments:you need a statin to lower your chances of getting another stroke and of heart disease. We will try to obtain samples for you by the next visit. We have documented that atorvastatin gave you muscle aches so it will not be prescribed again
--- NOTE | 2018-04-02 13:15 | ED ---
Neurological HPI - HPI Summary HPI Summary: Time seen by Dr. Eusebio Gordon MD: 1300. The patient is a 68 y/o F presenting to [facility] with a chief complaint of generalized weakness but more weakness on the left than the right starting yesterday. She is one month post-stroke, which affected her left side, and she has not fully recovered. Her ambulation has been affected, as she occasionally feels like her left leg is going to buckle. She often feels weakness in the left side, but it is more than normal. She also reports that her appetite has been decreased since yesterday as well. She denies CP and abd pain. Daily smoker. - History of Current Complaint Chief Complaint: EDWeakness Stated Complaint: GENERAL ILLNESS Time Seen by Provider: 04/02/18 12:47 Hx Obtained From: Patient Onset/Duration: Gradual Onset, Started hours ago - yesterday, Still Present Timing: Constant Onset Severity: Moderate Current Severity: Moderate Pain Intensity: 0 Pain Scale Used: 0-10 Numeric Character: Weak - generalized weakness with more weakness on the left side, Other: - POSITIVE: decreased appetite; NEGATIVE: CP, abd pain - Allergy/Home Medications Allergies/Adverse Reactions: Allergies Allergy/AdvReac Type Severity Reaction Status Date / Time No Known Allergies Allergy Verified 02/14/18 14:09 Home Medications: Home Medications Carvedilol 6.25 mg PO BID 04/02/18 [History Confirmed 04/02/18] Gabapentin 100 mg PO TID 04/02/18 [History Confirmed 04/02/18] Losartan TAB* [Cozaar TAB*] 50 mg PO DAILY 04/02/18 [History Confirmed 04/02/18] glipiZIDE TAB.XL* 5 mg PO DAILY 04/02/18 [History Confirmed 04/02/18] PMH/Surg Hx/FS Hx/Imm Hx Endocrine/Hematology History: Denies: Hx Diabetes Cardiovascular History: Reports: Hx Hypertension Denies: Hx Pacemaker/ICD History: Denies: Hx Renal Disease Musculoskeletal History: Reports: Other Musculoskeletal History - sciatic pain Sensory History: Denies: Hx Contacts or Glasses, Hx Deafness, Hx Hearing Aid Opthamlomology History: Denies: Hx Contacts or Glasses Psychiatric History: Denies: Hx Panic Disorder - Surgical History Surgery Procedure, Year, and Place: TONSILECTOMY AGE 6 - Immunization History Immunizations Up to Date: Yes Infectious Disease History: No Infectious Disease History: Denies: Traveled Outside the [place] in Last 30 Days - Family History Known Family History: Positive: Diabetes - Social History Alcohol Use: None Substance Use Type: Reports: None Smoking Status (MU): Heavy Every Day Tobacco Smoker Type: Cigarettes Review of Systems Negative: Chest Pain Positive: Other - decreased appetite. Negative: Abdominal Pain Positive: Weakness - general all over body, but especially on left side All Other Systems Reviewed And Are Negative: Yes Physical Exam - Summary Physical Exam Summary: Appearance: Well appearing, no pain distress Skin: warm, dry, reflects adequate perfusion Head/face: normal Eyes: EOMI, LESIA ENT: normal Neck: supple, non-tender Respiratory: CTA, breath sounds present Cardiovascular: RRR, pulses symmetrical Abdomen: non-tender, soft Bowel: present Musculoskeletal: normal, strength/ROM intact Neuro: normal, sensory motor intact, A&Ox3 Triage Information Reviewed: Yes Vital Signs On Initial Exam: Initial Vitals Temp Pulse Resp BP Pulse Ox 98.5 F 108 14 195/79 96 04/02/18 12:05 04/02/18 12:05 04/02/18 12:05 04/02/18 12:05 04/02/18 12:05 Vital Signs Reviewed: Yes - [place] Coma Scale Best Eye Response: 4 - Spontaneous Best Motor Response: 6 - Obeys Commands Best Verbal Response: 5 - Oriented Coma Scale Total: 15 Diagnostics - Vital Signs Vital Signs Temp Pulse Resp BP Pulse Ox 04/02/18 12:05 98.5 F 108 14 195/79 96 - Laboratory Result Diagrams: 04/02/18 13:12 04/02/18 13:12 Lab Statement: Any lab studies that have been ordered have been reviewed, and results considered in the medical decision making process. - Radiology CXR Radiology Interpretation Completed By: Radiologist Summary of Radiographic Findings: No evidence for acute disease. ED physician has reviewed this report. - EKG 12:30 Cardiac Rate: Tachycardia - 102 BPM EKG Rhythm: Sinus Tachycardia Summary of EKG Findings: No acute changes. NIH Scale - NIH Scale Level of Consciousness: Alert/Keenly Responsive Ask Patient the Month and His/Her Age: Both Correct Ask Pt to Open/Close Eyes and Sorter Operator/Release Non-Paretic Hand: Both Correctly Best Gaze (Only Horizontal Eye Movement): Normal Visual Field Testing: No Visual Loss Facial Paresis-Pt to Smile & Close Eyes or Grimace Symmetry: Normal/Symmetrical Motor Function - Right Arm: No Drift-Holds 10 Seconds Motor Function - Left Arm: No Drift-Holds 10 Seconds Motor Function - Right Leg: No Drift-Holds 10 Seconds Motor Function - Left Leg: No Drift-Holds 10 Seconds Limb Ataxia-Must be out of Proportion to Weakness Present: Absent Sensory (Use Pinprick to Test Arms/Legs/Trunk/Face): Normal Best Language (Describe Picture, Name Items): No Aphasia Dysarthria (Read Several Words): Normal Extinction and Inattention: No Abnormality Total Score: 0 Re-Evaluation - Re-Evaluation First Eval Re-Evaluation Time: 15:30 Change: Improved Comment: Patient is feeling better. She will be discharged home. She understands the need to return to the ED in the next 48 hours if symptoms worsen. Course/Dx - Course Course Of Treatment: The patient is a 68 y/o F presenting to [facility] with a chief complaint of generalized weakness with more weakness on the left side since yesterday, which has been more than normal since her stroke about a month ago. She additionally c/o decreased appetite, but denies CP and abd pain. There were no significant findings upon exam. NIH: 0. GCS: 15. In the ED course, patient was given Ns. Blood work obtained. EKG reveals sinus tachycardia. CXR is negative. The patient is diagnosed with weakness and viral syndrome. She will be discharged home with follow up with primary care provider in three days. She understands the need for return to the ED with new or worsening symptoms. - Differential Dx Differential Diagnoses Neuro: Positive: Hypovolemia, Viral Syndrome, Other - uti - Diagnoses Provider Diagnoses: Viral syndrome, Weakness Discharge - Sign-Out/Discharge Documenting (check all that apply): Patient Departure - Patient will be discharged home. - Discharge Plan Condition: Stable Disposition: HOME Patient Education Materials: Viral Syndrome (ED), Weakness (ED) Referrals: Dontae Borja MD [Primary Care Provider] - 3 Days Additional Instructions: Please follow up with your primary care provider in 3 days. Return to the emergency department if any new or worsening symptoms occur, especially within the next 48 hours. - Billing Disposition and Condition Condition: STABLE Disposition: Home - Attestation Statements Document Initiated by Scribe: Yes Documenting Scribe: Stephanie Brito Provider For Whom Patrick is Documenting (Include Credential): Dr. Eusebio Gordon MD Scribe Attestation: I, cathy Baeribed for Dr. Eusebio Gordon MD on 04/02/18 at 1726. Scribe Documentation Reviewed: Yes Provider Attestation: The documentation as recorded by the Stephanie cheney accurately reflects the service I personally performed and the decisions made by me, Dr. Eusebio Gordon MD
[2018-04-02 13:26] LABS: ABS Basophils 0.1 10^3/ul (0-0.2); ABS Eosinophils 0.2 10^3/ul (0-0.6); ABS Lymphocytes 4.7 10^3/ul (1.0-4.8); ABS Monocytes 1.2 10^3/ul (0-0.8); ABS Neutrophils 8.9 10^3/ul (1.5-7.7); ABS Nucleated RBC 0 10^3/ul; Eosinophil % 1.2 % (0-6); Hematocrit 42 % (35-47); Hemoglobin 14.7 g/dl (12.0-16.0); Lymphocyte % 31.1 % (25-47); Mean Corpuscular HGB Conc 35 g/dl (31-36); Mean Corpuscular Hemoglobin 31 pg (27-31); Mean Corpuscular Volume 90 fL (80-97); Mean Platelet Volume 9.2 um3 (7.4-10.4); Nucleated Red Blood Cells % 0; Platelet Count 432 10^3/ul (150-450); Red Blood Count 4.71 10^6/ul (4.00-5.40); Red Cell Distribution Width 14 % (10.5-15)
[2018-04-02 13:36] LABS: Activated Partial Thrombo Time 31.1 seconds (26.0-36.3); INR 0.95 (0.77-1.02)
[2018-04-02 13:40] LABS: ALT 10 U/L (7-52); AST 11 U/L (13-39); Albumin 3.7 g/dL (3.2-5.2); Albumin/Globulin Ratio 1.2 (1-3); Alkaline Phosphatase 95 U/L (34-104); Anion Gap 9 mmol/L (2-11); BUN/Creatinine Ratio 43.8 (8-20); Blood Urea Nitrogen 14 mg/dL (6-24); CO2 Carbon Dioxide 25 mmol/L (22-32); Calcium 9.3 mg/dL (8.6-10.3); Chloride 106 mmol/L (101-111); EGFR Non-African American 204.7 (>60); Globulin 3.2 g/dL (2-4); Glucose 102 mg/dL (70-100); Potassium 3.8 mmol/L (3.5-5.0); Sodium 140 mmol/L (135-145); Total Protein 6.9 g/dL (6.4-8.9)
[2018-04-02 14:17] LABS: Urine Appearance Clear; Urine Bilirubin Negative (Negative); Urine Blood Negative (Negative); Urine Color Yellow; Urine Glucose Negative (Negative); Urine Ketones 1+ (Negative); Urine Nitrite Negative (Negative); Urine Protein Negative (Negative); Urine Specific Gravity 1.014 (1.010-1.030); Urine Urobilinogen Negative (Negative)
--- NOTE | 2018-04-02 14:18 | RAD ---
INDICATION: Weakness. COMPARISON: Comparison is made with a prior study from February 14, 2018. TECHNIQUE: A portable view of the chest was obtained. FINDINGS: Cardiac and mediastinal contours appear to be within normal limits. The lungs are clear. No pleural effusion is seen. IMPRESSION: NO EVIDENCE FOR ACUTE DISEASE.
[2018-04-02 15:30] VITALS: BP 166/69
== END 2018-04-02 15:30 | disposition home or self-care (01) ==
LOC: ED 12:02
DX: B34.9 Viral infection, unspecified (principal); R53.1 Weakness; R00.0 Tachycardia, unspecified; I10 Essential (primary) hypertension; F17.210 Nicotine dependence, cigarettes, uncomplicated
CPT/HCPCS: 36415; 71045; 80053; 81003; 83605; 83690; 84484; 85025; 85610; 85730; 87040; 93005; 99282